=== PATIENT | male | born 1970 | race Caucasian/White ===

== ENCOUNTER 2017-10-11 12:54 | Outpatient (CLI) | payer BC ==
--- NOTE | 2017-10-11 13:24 | XRay Report ---
CHEST 2 VIEWS INDICATION: Cough. COMPARISON: None similar. FINDINGS: PA and lateral chest radiographs demonstrate normal cardiomediastinal silhouette. Slight left lung base horizontal atelectasis or scarring. Otherwise clear lungs. Slight mid to lower thoracic spine degenerative spurring. CONCLUSION: No significant acute chest process, as above. Thank you for the opportunity to participate in this patient's care.
== END 2017-10-11 12:55 | disposition home or self-care (01) ==
LOC: XRAY 12:54
PROVIDERS: ATTEND Internal Medicine
DX: R05 Cough (principal); M53.84 Other specified dorsopathies, thoracic region
CPT/HCPCS: 71046